=== PATIENT | female | born 1995 | race Caucasian/White ===

== ENCOUNTER 2018-01-06 16:09 | Outpatient (REF) | payer MEDICAID, SELFPAY ==
[2018-01-08 15:11] LABS: Chlamydia Result Negative; GC Result Negative; Specimen Description CERVIX
== END 2018-01-06 16:29 ==
LOC: LBN 16:09
PROVIDERS: PCP Nurse Practitioner Family; Visit Provider Obstetrics & Gynecology Gynecology
DX: N94.10 Unspecified dyspareunia (principal); Z11.3 Encounter for screening for infections with a predominantly sexual mode of transmission
CPT/HCPCS: 87491; 87591; 87480; 87510; 87660

== ENCOUNTER 2019-10-21 16:26 | Outpatient (REF) | payer MEDICAID, SELFPAY ==
--- NOTE | 2019-10-21 15:45 | PAPFT_PTH ---
PATIENT: REJI SANTANA LOC: [facility] U#:[id number] AGE/SX: 24/F ROOM: RE10/21/[address]: Maria G Del Real NP : 1995 BED: DIS: 10/21/2019 SPEC #: [id number] RECD: 10/21/19 17:20 STATUS: TAVO PAREDES #: [id number] BINH: 10/21/19 15:[address]: Maria G Del Real NP DEPT: [facility] Cytology RECD BY: Emily Ji ENTERED: 10/21/19 17:20 SP TYPE: PAPFT OTHR DR: Melisa Segundo Tissues: 1 - CX/ENDOCX FOR PAP SMEARS Procedures: PAP THIN PREP/[facility] Screening Comments: [id number] (CHLAMYDIA/GC)
[2019-10-22 15:08] LABS: Chlamydia Result Negative (Negative); GC Result Negative (Negative)
== END 2019-10-21 16:46 ==
LOC: LBN 16:26
PROVIDERS: PCP Nurse Practitioner Family; Visit Provider Nurse Practitioner Women's Health
DX: Z11.3 Encounter for screening for infections with a predominantly sexual mode of transmission (principal); Z12.4 Encounter for screening for malignant neoplasm of cervix
CPT/HCPCS: 87491; 87591; 88142

== ENCOUNTER 2019-10-22 03:16 | Outpatient (CLI) | payer MEDICAID, SELFPAY ==
[2019-10-22 11:48] LABS: TSH (W/Ref FT4) 0.71 uIU/mL (0.36-3.74)
== END 2019-10-22 03:36 ==
PROVIDERS: PCP Nurse Practitioner Family; Visit Provider Nurse Practitioner Women's Health
DX: R53.83 Other fatigue (principal); R63.5 Abnormal weight gain
CPT/HCPCS: 36415; 84443